=== PATIENT | male | born 1955 | race Caucasian/White ===

== ENCOUNTER → 2020-08-09 | Outpatient (CLI) | payer OTHER | LOC: HEART 5 10:39 | DX: I10 Essential (primary) hypertension (principal) ==

== ENCOUNTER → 2020-09-07 | Outpatient (CLI) | payer OTHER | LOC: HEART 5 10:30 | DX: R00.2 Palpitations (principal) ==

== ENCOUNTER 2021-07-09 13:32 | Inpatient (IN) | payer OTHER ==
[~2021-07-09] VITALS: Ht 172.7 cm; Wt 132.2 kg
[2021-07-09 14:17] LABS: HEMOGLOBIN 14.5 gm/dl (14.0-17.5); RED BLOOD COUNT 4.45 M/UL (4.20-5.50); WHITE BLOOD COUNT 7.8 K/UL (4.5-11.0)
[2021-07-09 14:37] LABS: BUN/CREATININE RATIO 22 (0-10)
[2021-07-09] MEDS ORDERED: FLONASE ALLER15.8 ML (17:55)
[2021-07-09] MEDS ORDERED: ZYRTEC10 MG PO (17:55)
[2021-07-09] MEDS ORDERED: MOBIC7.5 MG PO (17:56)
[2021-07-09] MEDS ORDERED: LOSARTAN POTAS100 MG PO (17:56)
[2021-07-09] MEDS ORDERED: CRESTOR5 MG PO (17:57)
[2021-07-09] MEDS ORDERED: SINGULAIR10 MG PO (17:57)
[2021-07-10 03:23] LABS: RED BLOOD COUNT 4.3 M/UL (4.20-5.50); WHITE BLOOD COUNT 6.5 K/UL (4.5-11.0)
[2021-07-10 04:10] LABS: BUN/CREATININE RATIO 24 (0-10)
[2021-07-12 02:42] LABS: HEMOGLOBIN 14.3 gm/dl (14.0-17.5); RED BLOOD COUNT 4.48 M/UL (4.20-5.50)
[2021-07-12 02:44] LABS: WHITE BLOOD COUNT 8.9 K/UL (4.5-11.0)
[2021-07-12 02:59] LABS: BUN/CREATININE RATIO 28 (0-10)
[2021-07-12] MEDS ORDERED: LOPRESSOR 25 MG25 MG PO (13:37)
[2021-07-12] MEDS ORDERED: ASPIRIN EC81 MG PO (14:21)
== END 2021-07-12 14:39 | disposition home or self-care (01) | DRG 287 ==
LOC: ER1 13:32 → CDU 15:06 → PROG CARE 15:06 → CDU 23:17 → PROG CARE 23:23
PROVIDERS: Emergency Medicine; Internal Medicine; Physician Assistant; ADMIT Internal Medicine
PROC: B24BZZZ Ultrasonography of Heart with Aorta (ICD-10-PCS; principal; 2021-07-10)
PROC: 4A023N7 Measurement of Cardiac Sampling and Pressure, Left Heart, Percutaneous Approach (ICD-10-PCS; 2021-07-11)
PROC: B2111ZZ Fluoroscopy of Multiple Coronary Arteries using Low Osmolar Contrast (ICD-10-PCS; 2021-07-12)
DX: R07.9 Chest pain, unspecified (principal); Z68.41 Body mass index [BMI] 40.0-44.9, adult; G89.29 Other chronic pain; Z20.822 Contact with and (suspected) exposure to COVID-19; E78.5 Hyperlipidemia, unspecified; G40.909 Epilepsy, unspecified, not intractable, without status epilepticus; Z96.611 Presence of right artificial shoulder joint; J30.2 Other seasonal allergic rhinitis; E66.01 Morbid (severe) obesity due to excess calories; I10 Essential (primary) hypertension; I20.9 Angina pectoris, unspecified; M54.50 Low back pain, unspecified; Z96.612 Presence of left artificial shoulder joint; Z83.6 Family history of other diseases of the respiratory system; Z95.5 Presence of coronary angioplasty implant and graft; Z90.89 Acquired absence of other organs; Z98.890 Other specified postprocedural states; Z88.0 Allergy status to penicillin; Z82.49 Family history of ischemic heart disease and other diseases of the circulatory system; Z72.89 Other problems related to lifestyle; Z71.3 Dietary counseling and surveillance
CPT/HCPCS: ECHO; 36415; 71045; 78452; 80048; 80053; 82550; 82553; 83690; 83874; 84484; 85025; 85027; 93005; 93017; 93306; 99152; 99285; A9502; C1769; C1887; C1894; G0378; J1644; J2250; J2370; J2785; J3010; J7040; U0002